=== PATIENT | female | born 1990 | race Two or more races ===

== ENCOUNTER 2020-11-07 10:26 | Emergency (ER) | payer BC, OTHER ==
[~2020-11-07] VITALS: Ht 165.1 cm; Wt 45.4 kg
[~2020-11-07 10:26] MED LIST: NORE1TAB9 PO
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
[2020-11-07 12:10] LABS: BASOPHILS % (AUTO) 0.5 % (0.0-2.0); EOSINOPHILS % (AUTO) 0.9 % (0.0-6.0); HEMATOCRIT 41 % (33-45); HEMOGLOBIN 13.6 g/dL (11.5-14.8); LYMPHOCYTES # (AUTO) 2.1 K/uL (0.8-4.8); LYMPHOCYTES % (AUTO) 22.2 % (20.0-44.0); MEAN CORPUSCULAR HGB CONC 33 g/dl (31.0-36.0); MEAN CORPUSCULAR VOLUME 89 fL (82-100); MONOCYTES # (AUTO) 0.9 K/uL (0.1-1.30); MONOCYTES % (AUTO) 9.4 % (2.0-12.0); NEUTROPHILS # (AUTO) 6.3 K/uL (1.8-8.9); PLATELET COUNT (AUTO) 315 K/uL (150-450); RED BLOOD CELL COUNT(AUTO) 4.61 MIL/uL (4.0-5.2); WHITE BLOOD COUNT (AUTO) 9.4 K/uL (4.3-11.0)
[2020-11-07] MEDS ORDERED: ACETAMINOPHEN ES 500 MG TABLET ONE (13:07)
[2020-11-07] MEDS ORDERED: LORAZEPAM 1 MG TABLET ONE (13:07)
[2020-11-07 13:15] VITALS: BP_SYST 127
[2020-11-07 13:23] LABS: CALCIUM, SERUM 8.7 mg/dL (8.5-10.1); CREATININE 0.7 mg/dL (0.6-1.3); POTASSIUM 3.8 mmol/L (3.5-5.1)
--- NOTE | 2020-11-07 13:23 | NUR ---
pt given tyenol refused ativan
[2020-11-07 13:29] LABS: ALBUMIN 3.8 g/dL (3.4-5.0); BILIRUBIN,DIRECT 0.1 mg/dL (0.0-0.2); BILIRUBIN,TOTAL 0.4 mg/dL (0.2-1.0); TOTAL PROTEIN, SERUM 7.5 g/dL (6.4-8.2)
[2020-11-07] MEDS ORDERED: ACETAMINOPHEN ES 500 MG TABLET PO ONE (13:30)
[2020-11-07] MEDS ORDERED: LORAZEPAM 1 MG TABLET PO ONE (13:30)
--- NOTE | 2020-11-07 13:58 | NUR ---
Patient discharged to home in stable condition. Written and verbal after care instructions given. Patient verbalizes understanding of instruction but refused to sign discharge papers.
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
[2020-11-07 14:07] VITALS: BP_DIAS 127
== END 2020-11-07 14:08 | disposition home or self-care (01) ==
LOC: ER 10:36
DX: S80.12XA Contusion of left lower leg, initial encounter (principal); S80.11XA Contusion of right lower leg, initial encounter; R00.0 Tachycardia, unspecified; I25.2 Old myocardial infarction; E11.9 Type 2 diabetes mellitus without complications; F41.9 Anxiety disorder, unspecified; Z79.899 Other long term (current) drug therapy; X58.XXXA Exposure to other specified factors, initial encounter; Y93.89 Activity, other specified; Y92.89 Other specified places as the place of occurrence of the external cause; Y99.8 Other external cause status
CPT/HCPCS: 36415; 80048-TC; 80076-TC; 84484-TC; 85025-TC; 85730-TC